=== PATIENT | female | born 1940 ===

== ENCOUNTER 2017-05-18 06:25 | Day surgery (SDC) | payer OTHER ==
[~2017-05-18 06:25] MED LIST: AVAPRO150 MG PO; HYDROCHLOROTH12.5 M1 PO; METFORMIN HCL500 MG PO; SYNTHROID88 MCG PO
== END 2017-05-18 11:25 | disposition home or self-care (01) ==
LOC: CIR.AMB 06:25
DX: M67.431 Ganglion, right wrist (principal)

== ENCOUNTER 2017-06-21 06:38 | Outpatient (CLI) | payer OTHER | END 2017-06-21 07:04 | disposition home or self-care (01) | LOC: LAB 06:38 | DX: D64.89 Other specified anemias (principal); N39.0 Urinary tract infection, site not specified; E11.65 Type 2 diabetes mellitus with hyperglycemia; E78.4 Other hyperlipidemia; E11.21 Type 2 diabetes mellitus with diabetic nephropathy; E66.9 Obesity, unspecified; E55.9 Vitamin D deficiency, unspecified; Z12.11 Encounter for screening for malignant neoplasm of colon; R10.84 Generalized abdominal pain; E66.8 Other obesity ==

== ENCOUNTER 2017-06-21 07:46 | Outpatient (CLI) | payer OTHER | END 2017-06-21 07:52 | disposition home or self-care (01) | LOC: SONOGRAMA 07:46 → MAMO-SONO 09:45 → NUCLEAR 06-23 12:00 | DX: R10.84 Generalized abdominal pain (principal); M81.0 Age-related osteoporosis without current pathological fracture; R10.12 Left upper quadrant pain ==

== ENCOUNTER 2018-05-23 11:27 | Outpatient (CLI) | payer OTHER | END 2018-05-23 12:00 | disposition home or self-care (01) | LOC: NUCLEAR 11:27 | DX: M81.0 Age-related osteoporosis without current pathological fracture (principal) ==

== ENCOUNTER → 2018-06-06 | Outpatient (CLI) | payer OTHER | END | disposition home or self-care (01) | LOC: WOUND MED 08:25 | DX: L97.512 Non-pressure chronic ulcer of other part of right foot with fat layer exposed (principal) | CPT/HCPCS: 11042; G0463; A4554; A4930; A6196; A6216 ==

== ENCOUNTER → 2018-06-13 | Outpatient (CLI) | payer OTHER | END | disposition home or self-care (01) | LOC: WOUND MED 08:01 | DX: L97.512 Non-pressure chronic ulcer of other part of right foot with fat layer exposed (principal) | CPT/HCPCS: G0463; A4554; A4930; A6216 ==